=== PATIENT | female | born 1950 | race Caucasian/White ===

== ENCOUNTER 2022-03-06 16:14 | Observation (INO) | payer MEDICARE, BC ==
[2022-03-06 17:58] LABS: #Monocytes 0.6 10x3/uL (0.0-1.1); #Neutrophils 4.9 10x3/uL (1.5-8.4); %Basophils 0.2 % (0.0-2.0); %Eosinophils 0.6 % (0.0-6.0); %Lymphocytes 14.5 % (18.0-47.0); %Monocytes 9.6 % (0.0-10.0); %Neutrophils 74.8 % (40.0-75.0); Hemoglobin 12.5 g/dL (12.0-15.5); Mean Corpuscular HGB CONC 33.7 g/dL (32.0-36.0); Mean Corpuscular Hemoglobin 30.9 pg (27.0-33.0); Mean Corpuscular Volume 91.8 fl (81.6-98.3); Mean Platelet Volume 10.7 fl (7.4-10.4); Platelet Count 156 10x3/uL (150-450); RBC Distribution Width 14.5 % (11.5-14.5); Red Blood Cell (RBC) Count 4.04 10x6/uL (3.90-5.03); White Blood Cell (WBC) Count 6.6 10x3/uL (3.5-10.5)
[2022-03-06 18:17] LABS: ALT (SGPT) 70 U/L (8-55); AST (SGOT) 163 U/L (5-34); Albumin 3.7 g/dL (3.4-4.8); Alkaline Phosphatase 126 U/L (40-110); Anion Gap 15 mmol/L (10-20); BUN (Urea Nitrogen) 17 mg/dL (9.8-20.1); Bilirubin, Total 0.7 mg/dL (0.2-1.2); Calc. Creatinine Clearance 0 mL/min (70-130); Carbon Dioxide 29 mmol/L (23-31); Chloride 98 mmol/L (98-107); Globulin 3.1 g/dL (2.4-3.5); Glucose 127 mg/dL (83-110); Potassium 4.1 mmol/L (3.5-5.1); Protein, Total 6.8 g/dL (5.8-8.1); Sodium 138 mmol/L (136-145)
[2022-03-06 18:52] LABS: CKMB 2.8 ng/mL (0-6.6)
[2022-03-06] MEDS ORDERED: Ventolin HFA Inhaler 60 PUFF INHALER INH PRN (21:47)
[2022-03-06] MEDS ORDERED: clonazePAM 1 MG TAB PO PRN (21:49)
[2022-03-06] MEDS ORDERED: Apixaban 5 MG TAB PO SCH (22:00)
[2022-03-06] MEDS ORDERED: Dronedarone HCl 400 MG TAB PO SCH (22:00)
[2022-03-06 22:54] VITALS: BMI 35.4
[2022-03-06 23:30] LABS: Magnesium 1.9 mg/dL (1.6-2.6)
[2022-03-06 23:35] LABS: Troponin I 0.027 ng/mL (< 0.028)
[2022-03-07 00:35] LABS: SARS-CoV-2 NAA Rapid Test Not Detected (NotDetected)
[2022-03-07 04:50] LABS: #Eosinphils 0.1 10x3/uL (0.0-0.5); #Monocytes 0.3 10x3/uL (0.0-1.1); #Neutrophils 2.5 10x3/uL (1.5-8.4); %Basophils 0.3 % (0.0-2.0); %Eosinophils 1.5 % (0.0-6.0); %Lymphocytes 27.6 % (18.0-47.0); %Monocytes 8.3 % (0.0-10.0); Anion Gap 15 mmol/L (10-20); BUN (Urea Nitrogen) 29 mg/dL (9.8-20.1); Calc. Creatinine Clearance 31 mL/min (70-130); Calcium 8.6 mg/dL (7.8-10.44); Carbon Dioxide 28 mmol/L (23-31); Chloride 101 mmol/L (98-107); Glucose 391 mg/dL (83-110); Hemoglobin 11.4 g/dL (12.0-15.5); Mean Corpuscular HGB CONC 33.8 g/dL (32.0-36.0); Mean Corpuscular Hemoglobin 31.4 pg (27.0-33.0); Mean Corpuscular Volume 92.8 fl (81.6-98.3); Mean Platelet Volume 10.5 fl (7.4-10.4); Platelet Count 135 10x3/uL (150-450); Potassium 4.9 mmol/L (3.5-5.1); RBC Distribution Width 14.6 % (11.5-14.5); Red Blood Cell (RBC) Count 3.63 10x6/uL (3.90-5.03); Sodium 139 mmol/L (136-145)
[2022-03-07 04:55] LABS: Troponin I 0.025 ng/mL (< 0.028)
[2022-03-07] MEDS: Levothyroxine Sodium 50 MCG TAB PO SCH (06:06)
[2022-03-07] MEDS ORDERED: HumaLOG 300 UNITS/3 ML VIAL SC SCH (06:45)
[2022-03-07 06:56] LABS: Bilirubin Neg (Negative); Blood, Urine 50 (Negative); Clarity Cloudy (Clear); Glucose, Urine (Dipstick) 250 mg/dL (Negative); Ketone, Urine 5 mg/dL (Negative); Leukocyte 100 (Negative); Nitrite Negative (Negative); Protein, Urine (Dipstick) 500 mg/dl (Neg-Trace); Urobilinogen Normal mg/dL (Less than 2)
[2022-03-07 06:57] LABS: Urine Culture Reflex No No
[2022-03-07 07:05] LABS: Bacteria/HPF 4+ HPF (None Seen); RBC/HPF 0-3 HPF (0-3); Renal Epithelial 0-3 HPF (None Seen); Transitional Epithelial 0-3 HPF (None Seen); WBC/HPF Greater Than 50 HPF (0-3)
[2022-03-07] MEDS ORDERED: Dextrose 50% Abboject 50 ML SYRINGE SLOW IVP PRN (07:40)
[2022-03-07] MEDS ORDERED: HumaLOG 300 UNITS/3 ML VIAL SC PRN (07:40)
[2022-03-07] MEDS ORDERED: Dextrose 5% in Water 1,000 ML IV PRN (07:40)
[2022-03-07] MEDS: Folic Acid 1 MG TAB PO SCH (08:52)
[2022-03-07] MEDS: Apixaban 5 MG TAB PO SCH ×2 (08:52→21:25)
[2022-03-07] MEDS: Dronedarone HCl 400 MG TAB PO SCH ×2 (08:52→18:02)
[2022-03-07] MEDS: Acetaminophen 325 MG TAB PO PRN (14:12)
[2022-03-07] MEDS ORDERED: Lantus 1000 UNITS/10 ML VIAL SC SCH (21:00)
[2022-03-08] MEDS: Acetaminophen 325 MG TAB PO PRN (03:24)
[2022-03-08] MEDS: Levothyroxine Sodium 50 MCG TAB PO SCH (05:31)
[2022-03-08 09:09] VITALS: BP 179/76; TEMP 98.2
[2022-03-08] MEDS: Dronedarone HCl 400 MG TAB PO SCH (09:22)
[2022-03-08] MEDS: Folic Acid 1 MG TAB PO SCH (09:23)
[2022-03-08] MEDS: Apixaban 5 MG TAB PO SCH (09:23)
[2022-03-08] MEDS ORDERED: Dronedarone HCl 400 MG TAB PO SCH ×2 (09:30→17:00)
[2022-03-08] MEDS ORDERED: Furosemide 40 MG TAB PO SCH (10:00)
[2022-03-08] MEDS ORDERED: Apixaban 5 MG TAB PO SCH (21:00)
[2022-03-09] MEDS ORDERED: Furosemide 40 MG TAB PO SCH (09:00)
[2022-03-09] MEDS ORDERED: Levothyroxine Sodium 50 MCG TAB PO SCH (09:00)
== END 2022-03-08 10:13 | disposition home or self-care (01) ==
LOC: CSHERS 16:14 → CSHTELE 22:34
PROVIDERS: ADMIT Family Medicine; ATTEND Internal Medicine
DX: R55 Syncope and collapse (principal); E11.22 Type 2 diabetes mellitus with diabetic chronic kidney disease; N18.6 End stage renal disease; R74.8 Abnormal levels of other serum enzymes; E11.42 Type 2 diabetes mellitus with diabetic polyneuropathy; E03.9 Hypothyroidism, unspecified; I48.20 Chronic atrial fibrillation, unspecified; J45.909 Unspecified asthma, uncomplicated; K58.9 Irritable bowel syndrome, unspecified; Z99.2 Dependence on renal dialysis; Z79.01 Long term (current) use of anticoagulants; Z79.4 Long term (current) use of insulin; Z88.8 Allergy status to other drugs, medicaments and biological substances
CPT/HCPCS: 71045; 76705; 80048; 80053; 81001; 82553; 82962 ×2; 83605; 83735; 84100; 84443; 84484 ×3; 85025 ×2; 93005 ×2; 93306; 94760; 96360; 99285; U0002; 36415; 36416; 93010; G0378; J1815

== ENCOUNTER 2023-01-03 08:52 | Inpatient (IN) | payer MEDICARE, BC ==
[2023-01-03 09:39] LABS: #Eosinphils 0.1 10x3/uL (0.0-0.5); #Monocytes 0.6 10x3/uL (0.0-1.1); #Neutrophils 6.4 10x3/uL (1.5-8.4); %Basophils 0.2 % (0.0-2.0); %Eosinophils 1.2 % (0.0-6.0); %Lymphocytes 15.3 % (18.0-47.0); %Monocytes 7.1 % (0.0-10.0); Hemoglobin 10.7 g/dL (12.0-15.5); Mean Corpuscular HGB CONC 33.9 g/dL (32.0-36.0); Mean Corpuscular Hemoglobin 34.2 pg (27.0-33.0); Mean Platelet Volume 10.8 fl (7.4-10.4); Platelet Count 173 10x3/uL (150-450); Red Blood Cell (RBC) Count 3.13 10x6/uL (3.90-5.03); White Blood Cell (WBC) Count 8.4 10x3/uL (3.5-10.5)
[2023-01-03 09:52] LABS: ALT (SGPT) 30 U/L (8-55); AST (SGOT) 13 U/L (5-34); Albumin 3.3 g/dL (3.4-4.8); Alkaline Phosphatase 104 U/L (40-110); Anion Gap 18 mmol/L (10-20); BUN (Urea Nitrogen) 53 mg/dL (9.8-20.1); Bilirubin, Total 0.5 mg/dL (0.2-1.2); Calc. Creatinine Clearance 0 mL/min (70-130); Calcium 8.6 mg/dL (7.8-10.44); Carbon Dioxide 24 mmol/L (23-31); Chloride 94 mmol/L (98-107); Estimated GFR 12; Globulin 3.1 g/dL (2.4-3.5); Magnesium 2.1 mg/dL (1.6-2.6); Potassium 4.3 mmol/L (3.5-5.1); Protein, Total 6.4 g/dL (5.8-8.1); Sodium 132 mmol/L (136-145)
[2023-01-03 10:01] LABS: Glucose 412 mg/dL (83-110)
[2023-01-03 10:11] LABS: Actual Bicarbonate (HCO3v) 24 mEq/L (22-28); Base Excess -0.4 mEq/L (-2 - +2); Calcium, Ionized (venous) 1.03 mmol/L (1.16-1.32); Chloride (VBG) 90 mmol/L (98-106); Hemoglobin (Hb) 11.5 g/dL (11.7-16.1); Potassium (VBG) 4.31 mmol/L (3.70-5.30); Puncture Site Other Site; RapidComm Collect By CBN; Sodium 132.5 mmol/L (133-146)
[2023-01-03] MEDS ORDERED: Nitroglycerin 0.4 MG TAB (25 Tab Bottle) SL PRN (11:16)
[2023-01-03] MEDS ORDERED: Fluticasone Propionate Nasal Spray 16 gm Bottle NASAL PRN (11:16)
[2023-01-03] MEDS ORDERED: Dextrose 5% in Water 1,000 ML IV PRN (11:18)
[2023-01-03] MEDS ORDERED: Dextrose 50% Abboject 50 ML SYRINGE SLOW IVP PRN (11:18)
[2023-01-03] MEDS ORDERED: Ondansetron PF 4 MG/2 ML Vial IVP PRN (11:18)
[2023-01-03 12:43] LABS: Hep B Surf Ag Non-Reactive S/CO (NonReactive)
[2023-01-03] MEDS ORDERED: Lantus 1000 UNITS/10 ML VIAL SC SCH (13:00)
[2023-01-03 13:15] LABS: Troponin I 0.042 ng/mL (< 0.028)
[2023-01-03 14:14] LABS: CKMB 3.3 ng/mL (0-6.6)
[2023-01-03] MEDS: Dronedarone HCl 400 MG TAB PO SCH (18:18)
[2023-01-03 19:03] LABS: Troponin I 0.031 ng/mL (< 0.028)
[2023-01-03] MEDS: Apixaban 5 MG TAB PO SCH (20:15)
[2023-01-03] MEDS: Atorvastatin Calcium 40 MG TAB PO SCH (20:15)
[2023-01-03 23:50] LABS: HBSAB Concentration Less than 8.00 mIU/mL; Hep B Surf AB Non-Reactive (NonReactive); Hep C IgG Ab Non-Reactive (NonReactive); Hep C Index 0.15 S/CO (0-0.79)
[2023-01-04 01:05] LABS: Hep B Core Total Ab Reactive (NonReactive); Hep B Core Total Index 9.11 S/CO (0-0.79)
[2023-01-04 05:02] LABS: #Eosinphils 0.1 10x3/uL (0.0-0.5); #Monocytes 0.4 10x3/uL (0.0-1.1); #Neutrophils 4.2 10x3/uL (1.5-8.4); %Basophils 0.3 % (0.0-2.0); %Eosinophils 1.5 % (0.0-6.0); %Lymphocytes 20.3 % (18.0-47.0); %Monocytes 6.6 % (0.0-10.0); Hemoglobin 10.8 g/dL (12.0-15.5); Mean Corpuscular HGB CONC 33.8 g/dL (32.0-36.0); Mean Corpuscular Hemoglobin 33.5 pg (27.0-33.0); Mean Corpuscular Volume 99.4 fl (81.6-98.3); Mean Platelet Volume 10.4 fl (7.4-10.4); Platelet Count 175 10x3/uL (150-450); RBC Distribution Width 12.9 % (11.5-14.5); Red Blood Cell (RBC) Count 3.22 10x6/uL (3.90-5.03); White Blood Cell (WBC) Count 5.9 10x3/uL (3.5-10.5)
[2023-01-04 05:06] LABS: Anion Gap 15 mmol/L (10-20); BUN (Urea Nitrogen) 25 mg/dL (9.8-20.1); Calc. Creatinine Clearance 0 mL/min (70-130); Calcium 8.6 mg/dL (7.8-10.44); Carbon Dioxide 26 mmol/L (23-31); Chloride 101 mmol/L (98-107); Estimated GFR 19; Glucose 97 mg/dL (83-110); Potassium 3.9 mmol/L (3.5-5.1); Sodium 138 mmol/L (136-145)
[2023-01-04] MEDS: Levothyroxine Sodium 50 MCG TAB PO SCH (05:10)
[2023-01-04 09:14] VITALS: BMI 27.5
[2023-01-04] MEDS: Dronedarone HCl 400 MG TAB PO SCH ×2 (10:36→17:44)
[2023-01-04] MEDS: Furosemide 40 MG TAB PO SCH (10:36)
[2023-01-04] MEDS: Apixaban 5 MG TAB PO SCH ×2 (10:36→21:53)
[2023-01-04] MEDS: Folic Acid 1 MG TAB PO SCH (10:37)
[2023-01-04] MEDS: Lantus 1000 UNITS/10 ML VIAL SC SCH (10:39)
[2023-01-04] MEDS: Acetaminophen 325 MG TAB PO PRN (13:20)
[2023-01-04] MEDS: HumaLOG 300 UNITS/3 ML VIAL SC PRN (17:57)
[2023-01-04] MEDS: Atorvastatin Calcium 40 MG TAB PO SCH (21:53)
[2023-01-05] MEDS: Ipratropium/Albuterol 3 ML NEB NEB PRN ×3 (02:28→19:49)
[2023-01-05 05:11] LABS: Anion Gap 20 mmol/L (10-20); BUN (Urea Nitrogen) 45 mg/dL (9.8-20.1); Calc. Creatinine Clearance 19 mL/min (70-130); Calcium 8.6 mg/dL (7.8-10.44); Carbon Dioxide 21 mmol/L (23-31); Chloride 100 mmol/L (98-107); Estimated GFR 14; Glucose 300 mg/dL (83-110); Potassium 3.9 mmol/L (3.5-5.1); Sodium 137 mmol/L (136-145)
[2023-01-05 05:12] LABS: #Eosinphils 0.1 10x3/uL (0.0-0.5); #Monocytes 0.4 10x3/uL (0.0-1.1); %Basophils 0.3 % (0.0-2.0); %Eosinophils 1.2 % (0.0-6.0); %Lymphocytes 17.2 % (18.0-47.0); %Monocytes 5.7 % (0.0-10.0); %Neutrophils 75.1 % (40.0-75.0); Hemoglobin 10.7 g/dL (12.0-15.5); Mean Corpuscular HGB CONC 33.4 g/dL (32.0-36.0); Mean Corpuscular Hemoglobin 33.3 pg (27.0-33.0); Mean Corpuscular Volume 99.7 fl (81.6-98.3); Mean Platelet Volume 10.4 fl (7.4-10.4); Platelet Count 176 10x3/uL (150-450); RBC Distribution Width 12.8 % (11.5-14.5); Red Blood Cell (RBC) Count 3.21 10x6/uL (3.90-5.03); White Blood Cell (WBC) Count 6.6 10x3/uL (3.5-10.5)
[2023-01-05] MEDS: Acetaminophen 325 MG TAB PO PRN (05:43)
[2023-01-05] MEDS: Levothyroxine Sodium 50 MCG TAB PO SCH (05:44)
[2023-01-05] MEDS: HumaLOG 300 UNITS/3 ML VIAL SC PRN ×2 (06:54→21:29)
[2023-01-05] MEDS: Dronedarone HCl 400 MG TAB PO SCH ×2 (14:57→14:58)
[2023-01-05] MEDS: Folic Acid 1 MG TAB PO SCH (14:58)
[2023-01-05] MEDS: Furosemide 40 MG TAB PO SCH (14:58)
[2023-01-05] MEDS: Apixaban 5 MG TAB PO SCH ×2 (14:59→20:59)
[2023-01-05] MEDS: Lantus 1000 UNITS/10 ML VIAL SC SCH (15:08)
[2023-01-05] MEDS: Atorvastatin Calcium 40 MG TAB PO SCH (20:59)
[2023-01-06] MEDS: Acetaminophen 325 MG TAB PO PRN (02:35)
[2023-01-06] MEDS: clonazePAM 1 MG TAB PO PRN (02:38)
[2023-01-06] MEDS: Levothyroxine Sodium 50 MCG TAB PO SCH (05:47)
[2023-01-06] MEDS: HumaLOG 300 UNITS/3 ML VIAL SC PRN ×4 (05:53→21:48)
[2023-01-06] MEDS: Ipratropium/Albuterol 3 ML NEB NEB PRN ×3 (08:46→16:07)
[2023-01-06] MEDS: Furosemide 40 MG TAB PO SCH (11:27)
[2023-01-06] MEDS: Apixaban 5 MG TAB PO SCH ×2 (11:27→21:48)
[2023-01-06] MEDS: Folic Acid 1 MG TAB PO SCH (11:27)
[2023-01-06] MEDS: Lantus 1000 UNITS/10 ML VIAL SC SCH (11:28)
[2023-01-06] MEDS: Dronedarone HCl 400 MG TAB PO SCH ×2 (11:28→18:33)
[2023-01-06 17:23] LABS: Hemoglobin A1c 8.4 % (4.0-6.0)
[2023-01-06] MEDS: Atorvastatin Calcium 40 MG TAB PO SCH (21:48)
[2023-01-07] MEDS: clonazePAM 1 MG TAB PO PRN (02:13)
[2023-01-07] MEDS: Acetaminophen 325 MG TAB PO PRN ×2 (02:13→21:00)
[2023-01-07] MEDS: Ipratropium/Albuterol 3 ML NEB NEB PRN (03:10)
[2023-01-07] MEDS: Levothyroxine Sodium 50 MCG TAB PO SCH (05:09)
[2023-01-07] MEDS ORDERED: Lantus 1000 UNITS/10 ML VIAL SC SCH (09:00)
[2023-01-07] MEDS: Apixaban 5 MG TAB PO SCH ×2 (09:36→21:00)
[2023-01-07] MEDS: Furosemide 40 MG TAB PO SCH (09:36)
[2023-01-07] MEDS: Folic Acid 1 MG TAB PO SCH (09:36)
[2023-01-07] MEDS: Dronedarone HCl 400 MG TAB PO SCH ×2 (09:36→17:13)
[2023-01-07 20:07] VITALS: BP 141/55
[2023-01-07] MEDS: Atorvastatin Calcium 40 MG TAB PO SCH (21:00)
[2023-01-07] MEDS: HumaLOG 300 UNITS/3 ML VIAL SC PRN (21:58)
[2023-01-07 23:09] VITALS: TEMP 97.8
== END 2023-01-07 22:15 | DRG 637 ==
LOC: CSHERS 08:52 → CSHTELE 12:38
PROVIDERS: ADMIT Internal Medicine; ATTEND Internal Medicine
PROC: 5A1D70Z Performance of Urinary Filtration, Intermittent, Less than 6 Hours Per Day (ICD-10-PCS; principal; 2023-01-03)
PROC: 5A1D70Z Performance of Urinary Filtration, Intermittent, Less than 6 Hours Per Day (ICD-10-PCS; 2023-01-05)
DX: E11.65 Type 2 diabetes mellitus with hyperglycemia (principal); N18.6 End stage renal disease; I48.20 Chronic atrial fibrillation, unspecified; E11.40 Type 2 diabetes mellitus with diabetic neuropathy, unspecified; R53.1 Weakness; E11.22 Type 2 diabetes mellitus with diabetic chronic kidney disease; E03.9 Hypothyroidism, unspecified; E78.5 Hyperlipidemia, unspecified; J45.909 Unspecified asthma, uncomplicated; D63.1 Anemia in chronic kidney disease; Z98.890 Other specified postprocedural states; Z90.49 Acquired absence of other specified parts of digestive tract; Z88.8 Allergy status to other drugs, medicaments and biological substances; Z79.01 Long term (current) use of anticoagulants; Z79.4 Long term (current) use of insulin; Z79.899 Other long term (current) drug therapy
CPT/HCPCS: 36415; 36416; 70450; 71045; 72125; 72170; 80048; 80053; 82010; 82553; 82805; 83036; 83605; 83735; 84484; 85025; 86704; 90935; 93005; 94640; 94760; 94762; 97139; G0257; J1815; J7620

== ENCOUNTER 2023-04-23 16:43 | Inpatient (IN) | payer MEDICARE, BC ==
[2023-04-23] MEDS ORDERED: Furosemide 40 MG/4 ML VIAL ONE (17:16)
[2023-04-23] MEDS ORDERED: Nitroglycerin 0.4 MG TAB (25 Tab Bottle) SL PRN (17:36)
[2023-04-23] MEDS ORDERED: clonazePAM 1 MG TAB PO PRN (17:36)
[2023-04-23] MEDS ORDERED: Ondansetron ODT 4 MG TAB PO PRN (17:37)
[2023-04-23 20:22] VITALS: BMI 37.3
[2023-04-23] MEDS: Apixaban 5 MG TAB PO SCH (21:50)
[2023-04-23] MEDS: Atorvastatin Calcium 40 MG TAB PO SCH (21:51)
[2023-04-24 04:17] LABS: #Eosinphils 0.1 10x3/uL (0.0-0.5); #Monocytes 0.4 10x3/uL (0.0-1.1); #Neutrophils 3.7 10x3/uL (1.5-8.4); %Basophils 0.5 % (0.0-2.0); %Eosinophils 1.3 % (0.0-6.0); %Lymphocytes 24.7 % (18.0-47.0); %Monocytes 6.7 % (0.0-10.0); %Neutrophils 66.6 % (40.0-75.0); Hemoglobin 10.8 g/dL (12.0-15.5); Mean Corpuscular HGB CONC 33.1 g/dL (32.0-36.0); Mean Corpuscular Hemoglobin 32.9 pg (27.0-33.0); Mean Corpuscular Volume 99.4 fl (81.6-98.3); Mean Platelet Volume 10.4 fl (7.4-10.4); Platelet Count 179 10x3/uL (150-450); RBC Distribution Width 13.6 % (11.5-14.5); Red Blood Cell (RBC) Count 3.28 10x6/uL (3.90-5.03); White Blood Cell (WBC) Count 5.5 10x3/uL (3.5-10.5)
[2023-04-24 04:28] LABS: Anion Gap 11 mmol/L (10-20); BUN (Urea Nitrogen) 33 mg/dL (9.8-20.1); Calc. Creatinine Clearance 24 mL/min (70-130); Calcium 8.9 mg/dL (7.8-10.44); Carbon Dioxide 31 mmol/L (23-31); Chloride 101 mmol/L (98-107); Estimated GFR 17; Glucose 141 mg/dL (83-110); Potassium 4.3 mmol/L (3.5-5.1); Sodium 139 mmol/L (136-145)
[2023-04-24] MEDS: Levothyroxine Sodium 50 MCG TAB PO SCH (06:27)
[2023-04-24] MEDS: Dronedarone HCl 400 MG TAB PO SCH ×2 (08:30→16:14)
[2023-04-24] MEDS: Apixaban 5 MG TAB PO SCH ×2 (08:30→21:23)
[2023-04-24] MEDS: Furosemide 100 MG/10 ML VIAL SLOW IVP SCH (08:30)
[2023-04-24] MEDS: Lantus 1000 UNITS/10 ML VIAL SC SCH (08:30)
[2023-04-24] MEDS: Folic Acid 1 MG TAB PO SCH (08:30)
[2023-04-24] MEDS ORDERED: Dextrose 5% in Water 1,000 ML IV PRN (11:28)
[2023-04-24] MEDS ORDERED: Dextrose 50% Abboject 50 ML SYRINGE SLOW IVP PRN (11:28)
[2023-04-24] MEDS ORDERED: Glucagon 1 MG/ML KIT IM PRN (11:28)
[2023-04-24] MEDS: Acetaminophen 325 MG TAB PO PRN ×2 (11:45→16:13)
[2023-04-24] MEDS: HumaLOG 300 UNITS/3 ML VIAL SC PRN ×3 (11:46→21:24)
[2023-04-24] MEDS: Ipratropium/Albuterol 3 ML NEB NEB PRN (20:31)
[2023-04-24] MEDS: Atorvastatin Calcium 40 MG TAB PO SCH (21:24)
[2023-04-25] MEDS: Levothyroxine Sodium 50 MCG TAB PO SCH (06:00)
[2023-04-25] MEDS: HumaLOG 300 UNITS/3 ML VIAL SC PRN ×3 (06:00→16:40)
[2023-04-25] MEDS: Furosemide 100 MG/10 ML VIAL SLOW IVP SCH (08:52)
[2023-04-25] MEDS: Lantus 1000 UNITS/10 ML VIAL SC SCH (08:53)
[2023-04-25] MEDS: Apixaban 5 MG TAB PO SCH ×2 (08:53→23:08)
[2023-04-25] MEDS: Dronedarone HCl 400 MG TAB PO SCH ×2 (08:53→15:57)
[2023-04-25] MEDS: Folic Acid 1 MG TAB PO SCH (08:53)
[2023-04-25] MEDS: Ipratropium/Albuterol 3 ML NEB NEB PRN (09:00)
[2023-04-25] MEDS ORDERED: Heparin 10,000 UNITS/ 10 ML VIAL SLOW IVP PRN (18:41)
[2023-04-25] MEDS: Atorvastatin Calcium 40 MG TAB PO SCH (23:08)
[2023-04-26] MEDS: Ipratropium/Albuterol 3 ML NEB NEB PRN
[2023-04-26 02:14] LABS: Hep B Surf Ag Reflx Confirmation S/CO (NonReactive)
[2023-04-26 04:23] LABS: HBSAB Concentration 8.62 mIU/mL; Hep B Surf AB Indeterminate (NonReactive)
[2023-04-26] MEDS: Levothyroxine Sodium 50 MCG TAB PO SCH (05:57)
[2023-04-26] MEDS: HumaLOG 300 UNITS/3 ML VIAL SC PRN (06:37)
[2023-04-26] MEDS: Furosemide 100 MG/10 ML VIAL SLOW IVP SCH (08:59)
[2023-04-26] MEDS: Apixaban 5 MG TAB PO SCH (08:59)
[2023-04-26] MEDS: Dronedarone HCl 400 MG TAB PO SCH (08:59)
[2023-04-26] MEDS: Folic Acid 1 MG TAB PO SCH (08:59)
[2023-04-26] MEDS: Lantus 1000 UNITS/10 ML VIAL SC SCH (09:03)
[2023-04-26] MEDS ORDERED: Benzonatate 100 MG CAP PO PRN (10:29)
[2023-04-26] MEDS ORDERED: Cholestyramine/Aspartame 4 gm Packet PO PRN (10:35)
[2023-04-26 11:44] VITALS: BP 136/61; TEMP 98.5
[2023-04-26] MEDS ORDERED: Cholestyramine/Aspartame 4 gm Packet PO SCH (22:00)
[2023-04-30 05:24] LABS: Hep B Surface AG-Rflx Sendout Negative (Negative)
== END 2023-04-26 11:30 | DRG 640 ==
LOC: CSHERS 16:43 → SUATTDRO 16:43 → CSHTELE 17:11 → OBSVTOIN 04-25 14:13
PROVIDERS: ADMIT Family Medicine; ATTEND Family Medicine
PROC: 5A1D70Z Performance of Urinary Filtration, Intermittent, Less than 6 Hours Per Day (ICD-10-PCS; principal; 2023-04-25)
DX: E87.70 Fluid overload, unspecified (principal); N18.6 End stage renal disease; I12.0 Hypertensive chronic kidney disease with stage 5 chronic kidney disease or end stage renal disease; I48.91 Unspecified atrial fibrillation; E03.9 Hypothyroidism, unspecified; J45.909 Unspecified asthma, uncomplicated; R09.02 Hypoxemia; E11.22 Type 2 diabetes mellitus with diabetic chronic kidney disease; E78.5 Hyperlipidemia, unspecified; Z90.49 Acquired absence of other specified parts of digestive tract; Z79.4 Long term (current) use of insulin; Z79.899 Other long term (current) drug therapy; Z79.01 Long term (current) use of anticoagulants; Z88.8 Allergy status to other drugs, medicaments and biological substances; Z98.890 Other specified postprocedural states; Z99.2 Dependence on renal dialysis
CPT/HCPCS: 36416; 71045; 80048; 80053; 82553; 83880; 84484; 85025; 86706; 87340; 90935; 93005; 93010; 93306; 94640; 94760; 96374; 96376; G0257; G0378; J1644; J1815; J1940; J7620; Q0162

== ENCOUNTER 2023-10-19 15:25 | Emergency (ER) | payer MEDICARE ==
[2023-10-19 16:29] LABS: #Eosinphils 0.1 10x3/uL (0.0-0.5); #Monocytes 0.5 10x3/uL (0.0-1.1); #Neutrophils 4.6 10x3/uL (1.5-8.4); %Basophils 0.5 % (0.0-2.0); %Lymphocytes 17.3 % (18.0-47.0); %Monocytes 7.1 % (0.0-10.0); %Neutrophils 72.8 % (40.0-75.0); Mean Corpuscular HGB CONC 34.4 g/dL (32.0-36.0); Mean Corpuscular Hemoglobin 34.1 pg (27.0-33.0); Mean Corpuscular Volume 99.1 fl (81.6-98.3); Mean Platelet Volume 10.9 fl (7.4-10.4); Platelet Count 195 10x3/uL (150-450); RBC Distribution Width 14.5 % (11.5-14.5); Red Blood Cell (RBC) Count 3.23 10x6/uL (3.90-5.03); White Blood Cell (WBC) Count 6.4 10x3/uL (3.5-10.5)
[2023-10-19 16:42] LABS: ALT (SGPT) 34 U/L (8-55); AST (SGOT) 41 U/L (5-34); Albumin 3.5 g/dL (3.4-4.8); Alkaline Phosphatase 100 U/L (40-110); Anion Gap 12 mmol/L (10-20); BUN (Urea Nitrogen) 10 mg/dL (9.8-20.1); Bilirubin, Total 0.6 mg/dL (0.2-1.2); Calc. Creatinine Clearance 0 mL/min (70-130); Calcium 9.1 mg/dL (7.8-10.44); Carbon Dioxide 34 mmol/L (23-31); Chloride 99 mmol/L (98-107); Estimated GFR 36; Globulin 3.1 g/dL (2.4-3.5); Glucose 70 mg/dL (83-110); Potassium 4.1 mmol/L (3.5-5.1); Protein, Total 6.6 g/dL (5.8-8.1); Sodium 141 mmol/L (136-145)
[2023-10-19 17:20] LABS: Bilirubin Neg (Negative); Blood, Urine 50 (Negative); Clarity Cloudy (Clear); Glucose, Urine (Dipstick) Normal (Negative); Ketone, Urine Negative (Negative); Leukocyte 500 (Negative); Nitrite Negative (Negative); Protein, Urine (Dipstick) 100 mg/dl (Neg-Trace); Urobilinogen Normal mg/dL (Less than 2); pH, Urine 6.5 (5.0-9.0)
[2023-10-19 17:42] LABS: Bacteria/HPF 4+ HPF (None Seen); CAUTI Indications for Culture Alt mental st,lethar; RBC/HPF 0-3 HPF (0-3)
[2023-10-19 17:43] LABS: Urine Culture Reflex No No
== END 2023-10-19 19:15 | disposition home or self-care (01) ==
LOC: CSHERS 15:25
DX: N39.0 Urinary tract infection, site not specified (principal); I12.0 Hypertensive chronic kidney disease with stage 5 chronic kidney disease or end stage renal disease; E11.22 Type 2 diabetes mellitus with diabetic chronic kidney disease; N18.6 End stage renal disease; Z99.2 Dependence on renal dialysis; J45.909 Unspecified asthma, uncomplicated
CPT/HCPCS: 36415; 80053; 81001; 85025; 93005

== ENCOUNTER 2023-11-18 15:15 | Outpatient (CLI) | payer MEDICARE | END 2023-11-18 15:16 | disposition home or self-care (01) | LOC: CSHULT 15:15 | PROVIDERS: ATTEND Family Medicine | DX: N39.0 Urinary tract infection, site not specified (principal); N28.89 Other specified disorders of kidney and ureter | CPT/HCPCS: 76770 ==

== ENCOUNTER 2024-02-24 10:22 | Emergency (ER) | payer MEDICARE ==
[2024-02-24] MEDS ORDERED: Morphine 4 MG/ML VIAL ONE (11:44)
[2024-02-24] MEDS ORDERED: VANCOMYCIN 2 GRAM/400 ML BAG 2 GM in Premix 1 BAG IVPB SCH (12:00)
[2024-02-24 12:05] LABS: #Basophils 0.02 10x3/uL (0.0-0.2); #Eosinphils 0.05 10x3/uL (0.0-0.5); #Neutrophils 7.12 10x3/uL (1.5-8.4); %Basophils 0.2 % (0.0-2.0); %Eosinophils 0.6 % (0.0-6.0); %Lymphocytes 6.6 % (18.0-47.0); %Monocytes 7.2 % (0.0-10.0); Hematocrit 31.3 % (34.9-44.5); Hemoglobin 10.5 g/dL (12.0-15.5); Mean Corpuscular HGB CONC 33.5 g/dL (32.0-36.0); Mean Corpuscular Hemoglobin 33.9 pg (27.0-33.0); Mean Platelet Volume 10.9 fl (7.4-10.4); Platelet Count 154 10x3/uL (150-450); RBC Distribution Width 14.1 % (11.5-14.5); White Blood Cell (WBC) Count 8.4 10x3/uL (3.5-10.5)
[2024-02-24 12:29] LABS: ALT (SGPT) 11 U/L (8-55); AST (SGOT) 12 U/L (5-34); Albumin 3.2 g/dL (3.4-4.8); Alkaline Phosphatase 47 U/L (40-110); Anion Gap 17 mmol/L (10-20); BUN (Urea Nitrogen) 67 mg/dL (9.8-20.1); Bilirubin, Total 0.6 mg/dL (0.2-1.2); Calc. Creatinine Clearance 0 mL/min (70-130); Calcium 9.2 mg/dL (7.8-10.44); Carbon Dioxide 22 mmol/L (23-31); Chloride 100 mmol/L (98-107); Estimated GFR 11; Globulin 2.6 g/dL (2.4-3.5); Glucose 241 mg/dL (83-110); Potassium 4.4 mmol/L (3.5-5.1); Protein, Total 5.8 g/dL (5.8-8.1); Sodium 135 mmol/L (136-145)
[2024-02-24 14:02] LABS: Troponin I 0.056 ng/mL (< 0.028)
[2024-02-24 14:23] LABS: Troponin I 0.042 ng/mL (< 0.028)
== END 2024-02-24 17:29 | disposition short-term general hospital (02) ==
LOC: CSHERS 10:22
DX: M70.41 Prepatellar bursitis, right knee (principal); L03.90 Cellulitis, unspecified; E11.22 Type 2 diabetes mellitus with diabetic chronic kidney disease; I12.0 Hypertensive chronic kidney disease with stage 5 chronic kidney disease or end stage renal disease; N18.6 End stage renal disease; Z99.2 Dependence on renal dialysis
CPT/HCPCS: 36415; 36416; 71045; 80053; 83605; 84484; 85025; 86140; 87040; 93005; 93010; 96374; 96375; J2270; J3370

== ENCOUNTER 2024-03-21 16:17 | Emergency (ER) | payer MEDICARE ==
[2024-03-21] MEDS ORDERED: Ondansetron PF 4 MG/2 ML Vial ONE (16:38)
[2024-03-21 17:13] LABS: #Basophils 0.02 10x3/uL (0.0-0.2); #Eosinphils 0.05 10x3/uL (0.0-0.5); #Monocytes 0.33 10x3/uL (0.0-1.1); #Neutrophils 4.12 10x3/uL (1.5-8.4); %Basophils 0.4 % (0.0-2.0); %Eosinophils 0.9 % (0.0-6.0); %Lymphocytes 15.6 % (18.0-47.0); %Monocytes 6.1 % (0.0-10.0); %Neutrophils 76.6 % (40.0-75.0); Hematocrit 29.2 % (34.9-44.5); Hemoglobin 9.9 g/dL (12.0-15.5); Mean Corpuscular HGB CONC 33.9 g/dL (32.0-36.0); Mean Corpuscular Hemoglobin 34.1 pg (27.0-33.0); Mean Corpuscular Volume 100.7 fL (81.6-98.3); Mean Platelet Volume 10.8 fL (7.4-10.4); Platelet Count 150 10x3/uL (150-450); RBC Distribution Width 14.2 % (11.5-14.5); White Blood Cell (WBC) Count 5.4 10x3/uL (3.5-10.5)
[2024-03-21 17:22] LABS: ALT (SGPT) 88 U/L (8-55); AST (SGOT) 177 U/L (5-34); Alkaline Phosphatase 127 U/L (40-110); Anion Gap 16 mmol/L (10-20); BUN (Urea Nitrogen) 25 mg/dL (9.8-20.1); Bilirubin, Total 0.8 mg/dL (0.2-1.2); Calc. Creatinine Clearance 0 mL/min (70-130); Calcium 8.6 mg/dL (7.8-10.44); Carbon Dioxide 29 mmol/L (23-31); Chloride 99 mmol/L (98-107); Estimated GFR 24; Globulin 3.3 g/dL (2.4-3.5); Glucose 59 mg/dL (83-110); Potassium 3.2 mmol/L (3.5-5.1); Protein, Total 6.3 g/dL (5.8-8.1); Sodium 141 mmol/L (136-145)
[2024-03-21 17:28] LABS: Troponin I 0.062 ng/mL (< 0.028)
[2024-03-21] MEDS ORDERED: Dextrose 50% Abboject 50 ML SYRINGE ONE (18:31)
[2024-03-21 19:02] LABS: Troponin I 0.067 ng/mL (< 0.028)
[2024-03-21] MEDS ORDERED: Dicyclomine 20 MG/2 ML VIAL ONE (20:54)
[2024-03-21 22:47] LABS: Bilirubin Neg (Negative); Blood, Urine 10 (Negative); Clarity Cloudy (Clear); Glucose, Urine (Dipstick) Normal (Negative); Ketone, Urine Negative (Negative); Leukocyte 500 (Negative); Nitrite Negative (Negative); Protein, Urine (Dipstick) 500 mg/dl (Neg-Trace); Specific Gravity, Urine 1.015 (1.005-1.030); Urobilinogen Normal mg/dL (Less than 2)
[2024-03-21] MEDS ORDERED: Acetaminophen 500 MG TAB ONE (22:58)
[2024-03-21 23:18] LABS: RBC/HPF 0-3 HPF (0-3)
[2024-03-21 23:19] LABS: CAUTI Indications for Culture Pelvic or flank pain
[2024-03-21 23:20] LABS: Transitional Epithelial 0-3 HPF (None Seen)
[2024-03-21 23:21] LABS: Bacteria/HPF 2+ HPF (None Seen); Yeast-Budding 2+ HPF (None Seen)
[2024-03-21 23:23] LABS: Urine Culture Reflex Yes Yes
== END 2024-03-22 00:18 | disposition short-term general hospital (02) ==
LOC: CSHERS 16:17
DX: E11.649 Type 2 diabetes mellitus with hypoglycemia without coma (principal); R77.8 Other specified abnormalities of plasma proteins; R53.1 Weakness; I12.0 Hypertensive chronic kidney disease with stage 5 chronic kidney disease or end stage renal disease; N18.6 End stage renal disease; E11.22 Type 2 diabetes mellitus with diabetic chronic kidney disease; E03.9 Hypothyroidism, unspecified; I48.91 Unspecified atrial fibrillation; E78.5 Hyperlipidemia, unspecified; Z79.899 Other long term (current) drug therapy; Z79.84 Long term (current) use of oral hypoglycemic drugs; Z79.4 Long term (current) use of insulin; Z79.890 Hormone replacement therapy
CPT/HCPCS: 51701; 80053; 81001; 82962; 84484 ×2; 85025; 87086; 93005; 96361; 96372; 96374; 96375; 99285; J2405; J7999; 36415; 36416